=== PATIENT | female | born 1940 | race Caucasian/White ===

== ENCOUNTER 2017-04-09 13:00 | Inpatient (IN) | payer MEDICARE, BC ==
[~2017-04-09] VITALS: Ht 165.1 cm; Wt 73.5 kg
[2017-04-09 17:20] VITALS: BP 138/69
[2017-04-09] MEDS ORDERED: POLY255P2 PO (18:46)
[2017-04-09] MEDS ORDERED: MELO-107 PO (18:46)
[2017-04-09] MEDS ORDERED: LORA0.5T PO (18:46)
[2017-04-09] MEDS ORDERED: CLOP75TA33 PO (18:46)
[2017-04-09] MEDS ORDERED: QUET25TA PO (18:46)
[2017-04-09] MEDS ORDERED: SACC250C PO (18:46)
[2017-04-09] MEDS ORDERED: HYDR-548 PO (18:46)
[2017-04-09] MEDS ORDERED: POTA10TA15 PO (18:46)
[2017-04-09] MEDS ORDERED: METO-295 PO (18:46)
[2017-04-09] MEDS ORDERED: TAMS0.4C34 PO (18:46)
[2017-04-09] MEDS ORDERED: RANI150C4 PO (18:46)
[2017-04-09] MEDS ORDERED: BISA10SU8 RC (18:46)
[2017-04-09] MEDS ORDERED: ONDA4TAB10 PO (18:46)
[2017-04-09] MEDS ORDERED: TOLT4CAP PO (18:46)
[2017-04-09] MEDS ORDERED: DOCU100C36 PO (18:46)
[2017-04-09] MEDS ORDERED: DONE5TAB34 PO (18:46)
[2017-04-09] MEDS ORDERED: LOSA50TA21 PO (18:46)
[2017-04-09] MEDS ORDERED: NALO25TA PO (18:46)
[2017-04-09] MEDS ORDERED: LIDO30AD10 TD (18:46)
[2017-04-09] MEDS ORDERED: DULO60CA45 PO (18:46)
[2017-04-09] MEDS ORDERED: ATOR10TA PO (18:46)
[2017-04-09] MEDS ORDERED: REPA2TAB9 PO (18:46)
[2017-04-09] MEDS ORDERED: DIPH1TAB PO (18:46)
[2017-04-09] MEDS ORDERED: FURO20TA4 PO (18:46)
[2017-04-09] MEDS ORDERED: MEMA10TA PO (18:46)
[2017-04-09] MEDS ORDERED: PREG20SO PO (18:46)
--- NOTE | 2017-04-09 19:02 | NUR ---
ADMIT 78 YRS OLD FEMALE FROM [facility] VIA AMBULANCE POST FALL AND SYNCOPAL EPISODE ,PT AAOX3 RIGHT UPPER AND LOWER EXTREMITIES WEAKNESS .NO NEURO DEFICITS .DENIES PAIN .NO SOB 02 AT 2 L/MIN O2 SAT 100%.SEEN BY ALEXANDRO NEGRON WITH ADMIT ORDERS . PT POWER OF SOUND CUTTER AT BEDSIDE WILL BRING PTS BELONGINGS HOME .VITALS STABLE .
[2017-04-09] MEDS ORDERED: DIPHENOXYLATE HCL/ATROP SULF TABLET PO PRN (19:15)
[2017-04-09] MEDS ORDERED: METOCLOPRAMIDE HCL 10 MG TABLET PO PRN (19:15)
[2017-04-09] MEDS ORDERED: BISACODYL 10 MG SUPP.RECT RC PRN (19:15)
[2017-04-09] MEDS ORDERED: ONDANSETRON HCL 4 MG TABLET PO PRN (19:15)
[2017-04-09 20:00] VITALS: BP 130/72
[2017-04-09] MEDS ORDERED: LORAZEPAM 0.5 MG TABLET PO SCH (21:00)
[2017-04-09] MEDS ORDERED: DULOXETINE 60 MG CAPSULE.DR PO SCH (21:00)
[2017-04-09] MEDS ORDERED: QUETIAPINE FUMARATE 25 MG TABLET PO SCH (21:00)
--- NOTE | 2017-04-09 21:00 | NUR ---
Easily awakens no c/o
[2017-04-09] MEDS: DONEPEZIL 5 MG TABLET PO SCH (22:21)
[2017-04-09] MEDS: ATORVASTATIN 10 MG TABLET PO SCH (22:22)
--- NOTE | 2017-04-10 05:39 | NUR ---
SLEPT entire night,turned every 2hrs,no distress noted
--- NOTE | 2017-04-10 07:30 | NUR ---
Received pt in bed, sleeping, O2 at 2L/NC no acute distress noted. HOB elevated, Bed kept low/locked position.
[2017-04-10 07:46] LABS: BASOPHILS # (AUTO) 0.1 K/uL (0.0-8.0); BASOPHILS % (AUTO) 0.9 % (0.0-2.0); EOSINOPHILS # (AUTO) 0.2 K/uL (0.0-0.7); EOSINOPHILS % (AUTO) 3.3 % (0.0-7.0); HEMATOCRIT 34.7 % (37-47); LYMPHOCYTES # (AUTO) 1.6 K/UL (0.8-4.8); LYMPHOCYTES % (AUTO) 22.2 % (20.5-51.5); MEAN CORPUSCULAR HEMOGLOBIN 32.3 UUG (27.0-31.0); MEAN CORPUSCULAR HGB CONC 35 g/dL (32.0-37.0); MEAN CORPUSCULAR VOLUME 93.7 FL (81.0-99.0); MONOCYTES # (AUTO) 0.7 K/UL (0.1-1.30); MONOCYTES % (AUTO) 9.2 % (0.0-11.0); NEUTROPHILS # (AUTO) 4.5 K/UL (1.8-8.9); NEUTROPHILS % (AUTO) 64.4 % (38.5-71.5); PLATELET COUNT (AUTO) 185 K/UL (150-450); RED BLOOD CELL COUNT(AUTO) 3.71 MIL/UL (4.2-5.4); WHITE BLOOD COUNT (AUTO) 7.1 K/UL (4.0-11.2)
[2017-04-10 08:28] LABS: CARBON DIOXIDE 34 mmol/L (21-32); CHLORIDE 107 mmol/L (98-107); CHOLESTEROL 189 mg/dL (<200); CREATININE 0.6 mg/dL (0.6-1.3); GLUCOSE 88 mg/dL (74-106); HDL CHOLESTEROL 54 mg/dL (40-60); PHOSPHOROUS 4.3 mg/dL (2.5-4.9); POTASSIUM 3.7 mmol/L (3.5-5.1); TRIGLYCERIDES 69 MG/DL (30-150); UREA NITROGEN, BLOOD 20 mg/dL (7-18)
[2017-04-10 08:41] VITALS: BP 156/67
[2017-04-10] MEDS ORDERED: PREGABALIN 25 MG CAPSULE PO SCH (09:00)
[2017-04-10] MEDS ORDERED: FUROSEMIDE 20 MG TABLET PO SCH (09:00)
[2017-04-10] MEDS: POLYETHYLENE GLYCOL 3350 238 GM POWDER PO SCH (09:00)
[2017-04-10] MEDS ORDERED: Medication Not On Formulary EA (Naloxegol Oxalate (Movantik) 25 MG) PO SCH (09:00)
[2017-04-10] MEDS ORDERED: DOCUSATE SODIUM 100 MG CAPSULE PO SCH (09:00)
[2017-04-10] MEDS ORDERED: REPAGLINIDE 2 MG TABLET PO SCH (09:00)
[2017-04-10] MEDS ORDERED: Medication Not On Formulary EA (Meloxicam 15 MG) PO SCH (09:00)
[2017-04-10] MEDS ORDERED: Medication Not On Formulary EA (Saccharomyces Boulardii (Florastor) 250 MG) PO SCH (09:00)
[2017-04-10] MEDS: MEMANTINE HCL 10 MG TABLET PO SCH ×2 (09:11→17:47)
[2017-04-10] MEDS: CLOPIDOGREL 75 MG TABLET PO SCH (09:11)
[2017-04-10] MEDS: ACIDOPHILUS/BULGARICUS CHEW TAB GT SCH (09:11)
[2017-04-10] MEDS: LOSARTAN POTASSIUM 50 MG TABLET PO SCH (09:12)
[2017-04-10] MEDS: LIDOCAINE 5% PATCH TD SCH (09:13)
[2017-04-10] MEDS: POTASSIUM CHLORIDE 20 MEQ TAB.PRT.SR PO SCH (09:55)
[2017-04-10] MEDS: MELOXICAM 7.5 MG TABLET PO SCH (09:55)
--- NOTE | 2017-04-10 10:30 | NUR ---
RECIEVED REPORT OF PT FROM DESEAN GARCIA.
--- NOTE | 2017-04-10 10:40 | NUR ---
RECIEVED PT IN THE ROOM, LYING IN BED, OBTUNDED AND NON RESPONSIVE TO DEEP AND PAINFUL STIMULI. SKIN IS DRY AND WARM. SBP TAKEN 145/77. ACCUCHECK DONE-107. RAPID RESPONSE CALLED, PT'S SUDDEN CHANGE OF NEURO STATUS.
--- NOTE | 2017-04-10 11:00 | NUR ---
NOTIFIED DR ORTEGA ABOUT PT'S CONDITION WITH NEW ORDERS. PT IS NOW RESPONDING TO PAINFUL STIMULI BUT STILL DROWSY.
--- NOTE | 2017-04-10 11:06 | NUR ---
RAPID RESPONSE CLEARED. PT TAKEN TO CT DEPT VIA BED ORDERED. BLOOD DRAWN, EKG AND CXR DONE ORDERED.
[2017-04-10 11:28] LABS: BASOPHILS % (AUTO) 0.8 % (0.0-2.0); EOSINOPHILS # (AUTO) 0.2 K/uL (0.0-0.7); EOSINOPHILS % (AUTO) 3.1 % (0.0-7.0); HEMATOCRIT 37.3 % (37-47); HEMOGLOBIN 12.9 G/DL (12.0-16.0); LYMPHOCYTES # (AUTO) 1.1 K/UL (0.8-4.8); LYMPHOCYTES % (AUTO) 18.3 % (20.5-51.5); MEAN CORPUSCULAR HGB CONC 35 g/dL (32.0-37.0); MEAN CORPUSCULAR VOLUME 92.9 FL (81.0-99.0); MONOCYTES # (AUTO) 0.5 K/UL (0.1-1.30); NEUTROPHILS % (AUTO) 68.8 % (38.5-71.5); PLATELET COUNT (AUTO) 180 K/UL (150-450); RED BLOOD CELL COUNT(AUTO) 4.02 MIL/UL (4.2-5.4); WHITE BLOOD COUNT (AUTO) 5.8 K/UL (4.0-11.2)
[2017-04-10 11:33] LABS: CARBON DIOXIDE 32 mmol/L (21-32); CHLORIDE 106 mmol/L (98-107); CREATININE 0.6 mg/dL (0.6-1.3); GLUCOSE 115 mg/dL (74-106); UREA NITROGEN, BLOOD 20 mg/dL (7-18)
[2017-04-10 11:39] LABS: ALANINE AMINOTRANSFERASE 16 U/L (14-59); ALKALINE PHOSPHATASE 61 U/L (50-136); ASPARTATE AMINOTRANSFERASE 19 U/L (15-37); BILIRUBIN,TOTAL 0.7 mg/dL (0.2-1.0); TOTAL PROTEIN, SERUM 6.6 g/dL (6.4-8.2)
[2017-04-10] MEDS: IV NS 1000 ML 1,000 ML IV SCH (15:30)
--- NOTE | 2017-04-10 16:00 | NUR ---
SEEN AND EXAMINED BY DR ORTEGA WITH NEW ORDER. DPOA AT THE BEDSIDE AND AWARE OF THE PT REFUSING HER BREAKFAST AND LUNCH. PROVIDED THE ADVANCE DIRECTIVE COPY OF THE PT.
--- NOTE | 2017-04-10 16:40 | NUR ---
UNABLE TO START IVF ORDERED BY . PT REFUSED IV INSERTION. DR ORTEGA MADE AWARE.
--- NOTE | 2017-04-10 18:00 | NUR ---
PT STILL LETHARGIC BUT MORE RESPONSIVE. REFUSED TO EAT HER DINNER. CRYING ON AND OFF.
--- NOTE | 2017-04-10 18:45 | NUR ---
PT CODE STATUS IS DNR/DNI NOW. POLST PAPER IN CHART AND SIGNED BY .
[2017-04-10] MEDS: DOCUSATE SODIUM 250 MG CAPSULE PO SCH (19:11)
[2017-04-10 20:00] VITALS: BP 151/79
--- NOTE | 2017-04-10 20:09 | NUR ---
nsg: Dr. Grimes ordered lidoderm patch. pt is allergic to adhesives. consulted with pharmacist. l/m with . awaiting callback.
[2017-04-10] MEDS ORDERED: LIDOCAINE 5% PATCH TD SCH (20:30)
[2017-04-10] MEDS: DONEPEZIL 5 MG TABLET PO SCH (20:54)
[2017-04-10] MEDS: FAMOTIDINE 20 MG TABLET PO SCH (20:54)
[2017-04-10] MEDS: TOLTERODINE LA 2 MG CAP.SR.24H PO SCH (20:54)
[2017-04-10] MEDS: ATORVASTATIN 10 MG TABLET PO SCH (20:54)
[2017-04-10] MEDS: TAMSULOSIN HCL 0.4 MG CAP.SR.24H PO SCH (20:54)
[2017-04-10] MEDS: HYDROCODONE/APAP 10-325 MG TABLET PO PRN (20:55)
--- NOTE | 2017-04-10 20:59 | NUR ---
nsg: pt refused acu check.
--- NOTE | 2017-04-10 21:00 | NUR ---
nsg: pt awake, alert, crying due to right shoulder pain and headache. will medicate with norco. kept clean and dry. repositioned. dvt pumps in place.
--- NOTE | 2017-04-11 05:50 | NUR ---
nsg: pt slept off and on. cried due to pain. pt also talks to herself. all needs attended. kept clean and dry. repositioned.
[2017-04-11 08:00] VITALS: BP 143/72
[2017-04-11] MEDS ORDERED: MIRALAX 17 GM POWD.PACK ONE (09:00)
[2017-04-11] MEDS: MELOXICAM 7.5 MG TABLET PO SCH (09:00)
[2017-04-11] MEDS: POLYETHYLENE GLYCOL 3350 238 GM POWDER PO SCH (09:00)
[2017-04-11] MEDS: IV NS 1000 ML 1,000 ML IV SCH (10:10)
[2017-04-11] MEDS: LIDOCAINE 5% PATCH TD SCH (10:10)
[2017-04-11] MEDS: ACIDOPHILUS/BULGARICUS CHEW TAB GT SCH (10:11)
[2017-04-11] MEDS: DOCUSATE SODIUM 250 MG CAPSULE PO SCH ×2 (10:11→18:17)
[2017-04-11] MEDS: CLOPIDOGREL 75 MG TABLET PO SCH (10:11)
[2017-04-11] MEDS: FAMOTIDINE 20 MG TABLET PO SCH ×2 (10:11→20:45)
[2017-04-11] MEDS: POTASSIUM CHLORIDE 20 MEQ TAB.PRT.SR PO SCH (10:11)
[2017-04-11] MEDS: MEMANTINE HCL 10 MG TABLET PO SCH ×2 (10:13→17:00)
[2017-04-11] MEDS: HYDROCODONE/APAP 10-325 MG TABLET PO PRN (10:13)
[2017-04-11] MEDS: LOSARTAN POTASSIUM 50 MG TABLET PO SCH (10:14)
--- NOTE | 2017-04-11 13:55 | NUR ---
Sound Effects Technician: SW met with pt at bedside to assess needs and provide support. Pt is a 77-year-old female admitted to ARU impaired mobility and functional decline. Pt reported she was doing "fine" and then fell asleep. SW attempted to speak with pt twice, however she is lethargic. Per chart, the pt has a hx of various comorbidities including dementia. SW attempted to contact pt's next of kin, Ayana Rollins but no answer at this time. SW will provide emotional support and supportive counseling. SW will encourage pt to comply with rehab goals. SW will provide linkage to community resources (dementia care). SW will provide linkage to case management (home health) if needed.
--- NOTE | 2017-04-11 15:57 | NUR ---
received pt awake with un labored respirations and c/o right fore arm pain, talkative and able to make needs known no swallowing issues. patient refused to be stuck for heplock placement today, will need to f/u with dr. ORTEGA TO SEE IF HE STILL WANTS IVF .CALL LIGHT IR REACH WITH SIDE RAILS UP TIMES two assisted with needs COntinue to monitor for safety
--- NOTE | 2017-04-11 16:53 | NUR ---
pt oob in to wheel chair to activities tolerated well nos/s of respiratory distress on scheduled norco for maintaining pain at acceptable levelcontinue to monitor for safety and comfort . call light in reach with side rails up times two.continue to monitor for safety and comfort
--- NOTE | 2017-04-11 19:30 | NUR ---
Report received. Patient seen; AAO. Speech clear, no acute distress noted. Plan of care discussed with patient; verbalized understanding. Addendum: 04/11/17 at 3964 by CINDY BARCENAS RN Amended: Links added.
--- NOTE | 2017-04-11 19:55 | NUR ---
Call placed to Dr. Meléndez re: IV order. Patient had refused IV and IV insertion during the day. Talked to patient who continues to refuse IV and claims she drinks and eats fine. Dr. Meléndez called back right away. IV dc'd as per MD order.
[2017-04-11 20:27] VITALS: BP 124/66
[2017-04-11] MEDS: DONEPEZIL 5 MG TABLET PO SCH (20:44)
[2017-04-11] MEDS: TOLTERODINE LA 2 MG CAP.SR.24H PO SCH (20:44)
[2017-04-11] MEDS: TAMSULOSIN HCL 0.4 MG CAP.SR.24H PO SCH (20:45)
[2017-04-11] MEDS: ATORVASTATIN 10 MG TABLET PO SCH (20:45)
--- NOTE | 2017-04-11 22:00 | NUR ---
Turned and repositioned. Able to make needs known. Addendum: 04/11/17 at 4686 by CINDY BARCENAS RN Amended: Links added.
--- NOTE | 2017-04-12 00:45 | NUR ---
Patient remains awake, watching TV. C/o headache and R shoulder pain. Medicated with [place]. Addendum: 04/12/17 at 0438 by CINDY BARCENAS RN Amended: Links added.
[2017-04-12] MEDS: HYDROCODONE/APAP 10-325 MG TABLET PO PRN ×2 (00:47→20:23)
--- NOTE | 2017-04-12 06:48 | NUR ---
Watched TV all night. Emotionally labile. Crying because she claims she vomited. Refused Zofran. Advised appropriately. Gown changed; continues to watch TV.
[2017-04-12] MEDS: ACIDOPHILUS/BULGARICUS CHEW TAB GT SCH (08:08)
[2017-04-12] MEDS: LOSARTAN POTASSIUM 50 MG TABLET PO SCH (08:09)
[2017-04-12] MEDS: DOCUSATE SODIUM 250 MG CAPSULE PO SCH ×2 (08:09→16:33)
[2017-04-12] MEDS: CLOPIDOGREL 75 MG TABLET PO SCH (08:10)
[2017-04-12] MEDS: MELOXICAM 7.5 MG TABLET PO SCH (08:10)
[2017-04-12] MEDS: POTASSIUM CHLORIDE 20 MEQ TAB.PRT.SR PO SCH (08:10)
[2017-04-12] MEDS: LIDOCAINE 5% PATCH TD SCH (08:11)
[2017-04-12] MEDS: FAMOTIDINE 20 MG TABLET PO SCH ×2 (08:11→20:22)
[2017-04-12] MEDS: MEMANTINE HCL 10 MG TABLET PO SCH ×2 (08:11→16:33)
[2017-04-12] MEDS: POLYETHYLENE GLYCOL 3350 238 GM POWDER PO SCH (08:17)
[2017-04-12] MEDS ORDERED: MIRALAX 17 GM POWD.PACK ONE (09:00)
[2017-04-12 09:31] VITALS: BP 170/79
[2017-04-12] MEDS: TOLTERODINE LA 2 MG CAP.SR.24H PO SCH (20:22)
[2017-04-12] MEDS: ATORVASTATIN 10 MG TABLET PO SCH (20:22)
[2017-04-12] MEDS: QUETIAPINE FUMARATE 25 MG TABLET PO SCH (20:22)
[2017-04-12] MEDS: TAMSULOSIN HCL 0.4 MG CAP.SR.24H PO SCH (20:22)
[2017-04-12] MEDS: DONEPEZIL 5 MG TABLET PO SCH (20:22)
[2017-04-12 21:06] VITALS: BP 165/81
[2017-04-13 07:35] VITALS: BP 153/87
[2017-04-13] MEDS: CLOPIDOGREL 75 MG TABLET PO SCH ×2 (08:19→09:00)
[2017-04-13] MEDS: ACIDOPHILUS/BULGARICUS CHEW TAB GT SCH ×2 (08:19→09:00)
[2017-04-13] MEDS: MEMANTINE HCL 10 MG TABLET PO SCH ×3 (08:19→17:32)
[2017-04-13] MEDS: DOCUSATE SODIUM 250 MG CAPSULE PO SCH ×3 (08:19→17:32)
[2017-04-13] MEDS: LOSARTAN POTASSIUM 50 MG TABLET PO SCH ×2 (08:19→09:00)
[2017-04-13] MEDS: POTASSIUM CHLORIDE 20 MEQ TAB.PRT.SR PO SCH ×2 (08:19→09:00)
[2017-04-13] MEDS: LIDOCAINE 5% PATCH TD SCH (08:19)
[2017-04-13] MEDS: FAMOTIDINE 20 MG TABLET PO SCH ×3 (08:20→20:34)
[2017-04-13] MEDS: MELOXICAM 7.5 MG TABLET PO SCH ×2 (08:20→09:00)
[2017-04-13] MEDS: MIRALAX 17 GM POWD.PACK PO SCH ×2 (08:21→09:00)
--- NOTE | 2017-04-13 09:30 | NUR ---
Pt refusing AM meds this morning. Attempted several times to educate pt and administer medications, but pt continued to refuse. Pt stated "Just leave me alone..."
[2017-04-13 20:00] VITALS: BP 124/61
[2017-04-13] MEDS: TAMSULOSIN HCL 0.4 MG CAP.SR.24H PO SCH (20:33)
[2017-04-13] MEDS: TOLTERODINE LA 2 MG CAP.SR.24H PO SCH (20:34)
[2017-04-13] MEDS: ATORVASTATIN 10 MG TABLET PO SCH (20:34)
[2017-04-13] MEDS: DONEPEZIL 5 MG TABLET PO SCH (20:34)
[2017-04-13] MEDS: QUETIAPINE FUMARATE 25 MG TABLET PO SCH (20:34)
[2017-04-14 07:30] VITALS: BP 138/63
--- NOTE | 2017-04-14 07:57 | NUR ---
Pt received in bed, sleeping but easily to arouse, a/o x3, Denies any SOB, On NC at 2L, Call light kept within reach, side rails up x2, Plan of care discussed.
[2017-04-14] MEDS: LIDOCAINE 5% PATCH TD SCH (08:59)
[2017-04-14] MEDS: CLOPIDOGREL 75 MG TABLET PO SCH (08:59)
[2017-04-14] MEDS: HYDROCODONE/APAP 10-325 MG TABLET PO PRN (09:00)
[2017-04-14] MEDS: FAMOTIDINE 20 MG TABLET PO SCH ×2 (09:00→20:41)
[2017-04-14] MEDS: ACIDOPHILUS/BULGARICUS CHEW TAB GT SCH (09:00)
[2017-04-14] MEDS: DOCUSATE SODIUM 250 MG CAPSULE PO SCH ×2 (09:00→16:58)
[2017-04-14] MEDS: LOSARTAN POTASSIUM 50 MG TABLET PO SCH (09:00)
[2017-04-14] MEDS: MELOXICAM 7.5 MG TABLET PO SCH (09:01)
[2017-04-14] MEDS: MEMANTINE HCL 10 MG TABLET PO SCH ×2 (09:01→16:58)
[2017-04-14] MEDS: POTASSIUM CHLORIDE 20 MEQ TAB.PRT.SR PO SCH (09:07)
[2017-04-14] MEDS: MIRALAX 17 GM POWD.PACK PO SCH (09:15)
--- NOTE | 2017-04-14 09:18 | NUR ---
Schedule medication given, pt c/o of pain to Right shoulder. [place] 1 tab PO given, for pain 8/10 scale. will con't to montior
--- NOTE | 2017-04-14 18:52 | NUR ---
NO acute distress noted, pt in bed, call light within reach. Bed kept low locked position. Pt was in good spirit today, interacting with activities, and therapy.
--- NOTE | 2017-04-14 18:59 | NUR ---
Per DPOA pt was using CPAP at night for sleep apnea, and want to know if she needs to continue. Dr. Alvarez was made aware, received no further orders at this time.
[2017-04-14 20:19] VITALS: BP 145/71
[2017-04-14] MEDS: TAMSULOSIN HCL 0.4 MG CAP.SR.24H PO SCH (20:41)
[2017-04-14] MEDS: ATORVASTATIN 10 MG TABLET PO SCH (20:42)
[2017-04-14] MEDS: DONEPEZIL 5 MG TABLET PO SCH (20:42)
[2017-04-14] MEDS: TOLTERODINE LA 2 MG CAP.SR.24H PO SCH (20:42)
[2017-04-14] MEDS: QUETIAPINE FUMARATE 25 MG TABLET PO SCH (20:42)
[2017-04-15 07:25] VITALS: BP 172/85
[2017-04-15] MEDS: LIDOCAINE 5% PATCH TD SCH (09:24)
[2017-04-15] MEDS: DOCUSATE SODIUM 250 MG CAPSULE PO SCH ×2 (09:25→16:52)
[2017-04-15] MEDS: CLOPIDOGREL 75 MG TABLET PO SCH (09:25)
[2017-04-15] MEDS: ACIDOPHILUS/BULGARICUS CHEW TAB GT SCH (09:25)
[2017-04-15] MEDS: FAMOTIDINE 20 MG TABLET PO SCH ×2 (09:25→20:36)
[2017-04-15] MEDS: MIRALAX 17 GM POWD.PACK PO SCH (09:26)
[2017-04-15] MEDS: MELOXICAM 7.5 MG TABLET PO SCH (09:26)
[2017-04-15] MEDS: MEMANTINE HCL 10 MG TABLET PO SCH ×2 (09:26→16:52)
[2017-04-15] MEDS: POTASSIUM CHLORIDE 20 MEQ TAB.PRT.SR PO SCH (09:26)
[2017-04-15] MEDS: LOSARTAN POTASSIUM 50 MG TABLET PO SCH (09:26)
--- NOTE | 2017-04-15 18:03 | NUR ---
Patient attended therapy today, no complaints of pain this shift. She took all medications as ordered and tolerated well. Patient had BM this shift.
--- NOTE | 2017-04-15 19:20 | NUR ---
Received patient in bed resting. Patient is A&Ox3, respirations are unlabored, no signs of distress. No pain reported by patient when asked. Bed in lowest position with 3/4 siderails up & bed alarm active for safety. Call light within reach. Will continue to monitor
[2017-04-15 20:15] VITALS: BP 137/85
[2017-04-15] MEDS: METOPROLOL TARTRATE 25 MG TABLET PO SCH (20:35)
[2017-04-15] MEDS: TOLTERODINE LA 2 MG CAP.SR.24H PO SCH (20:35)
[2017-04-15] MEDS: ATORVASTATIN 10 MG TABLET PO SCH (20:35)
[2017-04-15] MEDS: DONEPEZIL 5 MG TABLET PO SCH (20:35)
[2017-04-15] MEDS: QUETIAPINE FUMARATE 25 MG TABLET PO SCH (20:36)
[2017-04-15] MEDS: TAMSULOSIN HCL 0.4 MG CAP.SR.24H PO SCH (20:36)
[2017-04-15] MEDS: DOXEPIN 10 MG CAPSULE PO SCH (22:33)
[2017-04-16 08:17] VITALS: BP 163/62
[2017-04-16] MEDS: CLOPIDOGREL 75 MG TABLET PO SCH (08:58)
[2017-04-16] MEDS: MELOXICAM 7.5 MG TABLET PO SCH (08:58)
[2017-04-16] MEDS: DOCUSATE SODIUM 250 MG CAPSULE PO SCH ×2 (08:58→18:10)
[2017-04-16] MEDS: MEMANTINE HCL 10 MG TABLET PO SCH ×2 (08:58→18:10)
[2017-04-16] MEDS: POTASSIUM CHLORIDE 20 MEQ TAB.PRT.SR PO SCH (08:59)
[2017-04-16] MEDS: LOSARTAN POTASSIUM 50 MG TABLET PO SCH (08:59)
[2017-04-16] MEDS: MIRALAX 17 GM POWD.PACK PO SCH (08:59)
[2017-04-16] MEDS: FAMOTIDINE 20 MG TABLET PO SCH ×2 (08:59→21:35)
[2017-04-16] MEDS: ACIDOPHILUS/BULGARICUS CHEW TAB GT SCH (08:59)
[2017-04-16] MEDS: METOPROLOL TARTRATE 25 MG TABLET PO SCH ×2 (08:59→21:35)
[2017-04-16] MEDS: LIDOCAINE 5% PATCH TD SCH (09:00)
--- NOTE | 2017-04-16 14:06 | NUR ---
Interdisciplinary Team Summary
[2017-04-16] MEDS: HYDROCODONE/APAP 10-325 MG TABLET PO PRN (18:42)
--- NOTE | 2017-04-16 18:44 | NUR ---
Patient crying due to pain in right shoulder. Pain medication given as ordered by MD (niko miranda). Will reassess
--- NOTE | 2017-04-16 20:00 | NUR ---
RECEIVED PT AWAKE, ALERT & ORIENTED X3, DENIES PAIN THIS TIME. WATCHING TV. R ARM, ELEVATED ON PILLOW. NOT IN ANY DISTRESS.
[2017-04-16 20:04] VITALS: BP 157/77
[2017-04-16] MEDS: TAMSULOSIN HCL 0.4 MG CAP.SR.24H PO SCH (21:34)
[2017-04-16] MEDS: TOLTERODINE LA 2 MG CAP.SR.24H PO SCH (21:34)
[2017-04-16] MEDS: ATORVASTATIN 10 MG TABLET PO SCH (21:34)
[2017-04-16] MEDS: QUETIAPINE FUMARATE 25 MG TABLET PO SCH (21:35)
[2017-04-16] MEDS: DONEPEZIL 5 MG TABLET PO SCH (21:41)
[2017-04-16] MEDS: DOXEPIN 10 MG CAPSULE PO SCH (21:41)
--- NOTE | 2017-04-16 22:00 | NUR ---
REPOSITIONED FOR COMFORT.
--- NOTE | 2017-04-16 23:00 | NUR ---
SLEEPING WELL. NOT IN ANY DISTRESS.
--- NOTE | 2017-04-17 06:11 | NUR ---
PT. SLEPT WELL. NOT IN ANY DISTRESS.
--- NOTE | 2017-04-17 08:00 | NUR ---
Received patient awake, alert, verbally responsive, not in any form of acute distress. She denies any pain or discomfort at this time. Call light placed within reach. Assisted to her needs.
[2017-04-17 08:25] VITALS: BP 172/72
[2017-04-17] MEDS: LIDOCAINE 5% PATCH TD SCH (09:24)
[2017-04-17] MEDS: ACIDOPHILUS/BULGARICUS CHEW TAB GT SCH (09:25)
[2017-04-17] MEDS: FAMOTIDINE 20 MG TABLET PO SCH ×2 (09:26→20:49)
[2017-04-17] MEDS: CLOPIDOGREL 75 MG TABLET PO SCH (09:26)
[2017-04-17] MEDS: MEMANTINE HCL 10 MG TABLET PO SCH ×2 (09:26→17:16)
[2017-04-17] MEDS: POTASSIUM CHLORIDE 20 MEQ TAB.PRT.SR PO SCH (09:26)
[2017-04-17] MEDS: DOCUSATE SODIUM 250 MG CAPSULE PO SCH ×2 (09:26→17:16)
[2017-04-17] MEDS: MELOXICAM 7.5 MG TABLET PO SCH (09:27)
[2017-04-17] MEDS: METOPROLOL TARTRATE 25 MG TABLET PO SCH ×2 (09:27→20:48)
[2017-04-17] MEDS: LOSARTAN POTASSIUM 50 MG TABLET PO SCH (09:27)
[2017-04-17] MEDS: MIRALAX 17 GM POWD.PACK PO SCH (09:28)
[2017-04-17 20:00] VITALS: BP 174/76
--- NOTE | 2017-04-17 20:00 | NUR ---
RECEIVED PT. AWAKE, ALERT & ORIENTED X3 W/ PERIODS OF FORGETFULNESS. DR MARGOT STEPHENS WAS HERE & NOTIFIED OF BP-174/76 W/ ORDERS. REPOSITIONED W/ HOB ELEVATED.
[2017-04-17] MEDS: DONEPEZIL 5 MG TABLET PO SCH (20:46)
[2017-04-17] MEDS: TOLTERODINE LA 2 MG CAP.SR.24H PO SCH (20:47)
[2017-04-17] MEDS: AMLODIPINE 5 MG TABLET PO SCH (20:47)
[2017-04-17] MEDS: ATORVASTATIN 10 MG TABLET PO SCH (20:48)
[2017-04-17] MEDS: TAMSULOSIN HCL 0.4 MG CAP.SR.24H PO SCH (20:48)
[2017-04-17] MEDS: QUETIAPINE FUMARATE 25 MG TABLET PO SCH (20:49)
[2017-04-17] MEDS: DOXEPIN 10 MG CAPSULE PO SCH (20:50)
[2017-04-17] MEDS ORDERED: LISINOPRIL 10 MG TABLET PO SCH (21:00)
--- NOTE | 2017-04-17 22:00 | NUR ---
DR STEPHENS CALLED RE: BP-194/97 AFTER NORVASC 5MG & LOPRESSOR 25 MG GIVEN PO.
[2017-04-18] MEDS ORDERED: hydrALAZINE HCL 25 MG TABLET PO SCH
--- NOTE | 2017-04-18 00:05 | NUR ---
DR. STEPHENS CALLED BACK & ORDER RECEIVED. HYDRALAZINE 25 MG GIVEN PO.
[2017-04-18] MEDS ORDERED: hydrALAZINE HCL 25 MG TABLET ONE (00:24)
--- NOTE | 2017-04-18 06:27 | NUR ---
SLEPT WELL ALL NIGHT. AM CARE DONE. REPOSITIONED W/ HOB ELEVATED.
[2017-04-18] MEDS ORDERED: hydrALAZINE HCL 25 MG TABLET PO PRN (07:30)
[2017-04-18] MEDS ORDERED: NITROGLYCERIN OINT 1 GM PACKET TP PRN (07:45)
--- NOTE | 2017-04-18 08:00 | NUR ---
Received patient in bed asleep but arousable, not in any form of acute distress. She denies any pain or discomfort. Call light placed within reach.
[2017-04-18] MEDS: METOPROLOL TARTRATE 25 MG TABLET PO SCH ×2 (08:18→20:44)
[2017-04-18] MEDS: AMLODIPINE 5 MG TABLET PO SCH ×2 (08:19→20:42)
[2017-04-18] MEDS: LOSARTAN POTASSIUM 50 MG TABLET PO SCH (08:20)
--- NOTE | 2017-04-18 10:00 | NUR ---
Patient back from radiology s/p head CT scan.
[2017-04-18] MEDS: LIDOCAINE 5% PATCH TD SCH (10:41)
[2017-04-18] MEDS: MELOXICAM 7.5 MG TABLET PO SCH (10:41)
[2017-04-18] MEDS: CLOPIDOGREL 75 MG TABLET PO SCH (10:41)
[2017-04-18] MEDS: ACIDOPHILUS/BULGARICUS CHEW TAB GT SCH (10:41)
[2017-04-18] MEDS: POTASSIUM CHLORIDE 20 MEQ TAB.PRT.SR PO SCH (10:41)
[2017-04-18] MEDS: DOCUSATE SODIUM 250 MG CAPSULE PO SCH ×2 (10:41→18:34)
[2017-04-18] MEDS: FAMOTIDINE 20 MG TABLET PO SCH ×2 (10:42→20:40)
[2017-04-18] MEDS: MEMANTINE HCL 10 MG TABLET PO SCH ×2 (10:42→18:39)
[2017-04-18] MEDS: MIRALAX 17 GM POWD.PACK PO SCH (10:44)
[2017-04-18 14:50] VITALS: BP 126/70
--- NOTE | 2017-04-18 15:31 | NUR ---
Notified Dr. Corbett regarding patient sleeping most of the time and when waken up she gets upset and that patient has been refusing to eat. Per MD monitor for now since vital signs are good and CT scan is negative.
--- NOTE | 2017-04-18 18:30 | NUR ---
Patient is awake, asked for a snack. She finished cup of ice cream and natacha crackers. No complain of pain at this time. Attended to her needs.
[2017-04-18] MEDS: DONEPEZIL 5 MG TABLET PO SCH (20:35)
[2017-04-18] MEDS: ATORVASTATIN 10 MG TABLET PO SCH (20:35)
[2017-04-18] MEDS: TAMSULOSIN HCL 0.4 MG CAP.SR.24H PO SCH (20:35)
[2017-04-18] MEDS: QUETIAPINE FUMARATE 25 MG TABLET PO SCH (20:40)
[2017-04-18] MEDS: DOXEPIN 10 MG CAPSULE PO SCH (20:41)
[2017-04-18] MEDS: TOLTERODINE LA 2 MG CAP.SR.24H PO SCH (20:42)
[2017-04-18 21:01] VITALS: BP 118/67
[2017-04-18] MEDS: HYDROCODONE/APAP 10-325 MG TABLET PO PRN (22:54)
--- NOTE | 2017-04-19 05:37 | NUR ---
AWAKE UPON ROUNDS. AAOX4. NEEDS ATTENDED. PAIN MEDS GIVEN ORDERED. INCONTINENT OF BOWEL AND BLADDER. KEPT CLEAN AND DRY. POSSIBLE DISCHARGE TODAY.WILL MONITOR PATIENT.VSS.
--- NOTE | 2017-04-19 08:00 | NUR ---
SBAR report received. Pt. assessed to be awake, alert, oriented, and comfortably sitting up eating breakfast. V/S stable. Pt. compliant with all routine medication administration. Call light within reach and fall precautions in place. Will continue to monitor.
[2017-04-19 08:20] VITALS: BP 126/65
[2017-04-19] MEDS: FAMOTIDINE 20 MG TABLET PO SCH (08:53)
[2017-04-19] MEDS: ACIDOPHILUS/BULGARICUS CHEW TAB GT SCH (08:54)
[2017-04-19] MEDS: MEMANTINE HCL 10 MG TABLET PO SCH (08:54)
[2017-04-19] MEDS: LOSARTAN POTASSIUM 50 MG TABLET PO SCH (08:55)
[2017-04-19] MEDS: DOCUSATE SODIUM 250 MG CAPSULE PO SCH (08:56)
[2017-04-19] MEDS: AMLODIPINE 5 MG TABLET PO SCH (08:56)
[2017-04-19] MEDS: MELOXICAM 7.5 MG TABLET PO SCH (08:56)
[2017-04-19] MEDS: CLOPIDOGREL 75 MG TABLET PO SCH (08:56)
[2017-04-19 08:58] VITALS: BP 115/69
[2017-04-19] MEDS: METOPROLOL TARTRATE 25 MG TABLET PO SCH (08:58)
[2017-04-19] MEDS: POTASSIUM CHLORIDE 20 MEQ TAB.PRT.SR PO SCH (08:59)
[2017-04-19] MEDS: LIDOCAINE 5% PATCH TD SCH (09:03)
[2017-04-19] MEDS: MIRALAX 17 GM POWD.PACK PO SCH (09:04)
--- NOTE | 2017-04-19 15:04 | NUR ---
Pt. discharge orders received. V/s taken at 1439 BP 160/93, Hr 80, T 97.4, and 02 95% on RA. Pt. stable with no distress noted at this time. Nava Aleman, admin. at [facility] given SBAR report. Ambulance sausage canner arrived, and report given. All Pt discharge materials, including personal belongings, copies of pertinent medical information, and education documents signed and given to Pt for transfer.
== END 2017-04-19 15:30 | DRG 56 ==
PROVIDERS: ADMIT Physical Medicine & Rehabilitation Pain Medicine; ATTEND Physical Medicine & Rehabilitation Pain Medicine
DX: I69.351 Hemiplegia and hemiparesis following cerebral infarction affecting right dominant side (principal); G93.41 Metabolic encephalopathy; I13.0 Hypertensive heart and chronic kidney disease with heart failure and stage 1 through stage 4 chronic kidney disease, or unspecified chronic kidney disease; F03.90 Unspecified dementia, unspecified severity, without behavioral disturbance, psychotic disturbance, mood disturbance, and anxiety; I50.9 Heart failure, unspecified; G62.9 Polyneuropathy, unspecified; W19.XXXD Unspecified fall, subsequent encounter; F29 Unspecified psychosis not due to a substance or known physiological condition; M47.897 Other spondylosis, lumbosacral region; N39.41 Urge incontinence; N18.9 Chronic kidney disease, unspecified; I25.10 Atherosclerotic heart disease of native coronary artery without angina pectoris; R27.0 Ataxia, unspecified; R26.9 Unspecified abnormalities of gait and mobility; Z66 Do not resuscitate; G47.00 Insomnia, unspecified; T14.8 Other injury of unspecified body region; Z91.81 History of falling; F32.9 Major depressive disorder, single episode, unspecified; F41.9 Anxiety disorder, unspecified; G89.29 Other chronic pain; M54.5 Low back pain; R63.0 Anorexia; Z88.1 Allergy status to other antibiotic agents; Z91.018 Allergy to other foods; Z91.048 Other nonmedicinal substance allergy status
CPT/HCPCS: 36415; 70030-TC; 70450; 71010; 83735; 84100; 85025; 85730; 92507; 92523; 92526; 92610; 93005; 97110; 97112; 97165; 97530; 97535; J7030; Q0162